=== PATIENT | female | born 1960 | race Caucasian/White ===

== ENCOUNTER 2019-06-15 09:07 | Emergency (ER) | payer SELFPAY ==
[2019-06-15] MEDS ORDERED: ONDANSETRON 4 MG TAB.RAPDIS PO ONE (10:04)
--- NOTE | 2019-06-15 10:05 | ER Document Report ---
ED Medical Screen (RME) - General Chief Complaint: Abdominal Pain Stated Complaint: ABDOMINAL PAIN, CHEST PRESSURE Time Seen by Provider: 06/15/19 09:59 Notes: 58-year-old female with history of [place] with 1 stent presents for chest pressure and abdominal pain. Patient states abdominal pain started yesterday and chest pressure started earlier today. Patient has associated nausea and vomiting and dizziness. Patient denies any dyspnea. Lungs clear to auscultation bilaterally. Abdomen soft nontender. I have greeted and performed a rapid initial assessment of this patient. A comprehensive ED assessment and evaluation of the patient, analysis of test results and completion of the medical decision making process with be conducted by additional ED providers. TRAVEL OUTSIDE OF THE [place] IN LAST 30 DAYS: No - Related Data Allergies/Adverse Reactions: amoxicillin Allergy (Verified 06/15/19 09:43) erythromycin base Allergy (Verified 06/15/19 09:43) Penicillins Allergy (Verified 06/15/19 09:43) Sulfa (Sulfonamide Antibiotics) Allergy (Verified 06/15/19 09:43) Home Medications: lisinopril. metoprolol. asa. pro air. vicodin. prava statin. lorazepam Past Medical History - Social History Chew tobacco use (# tins/day): No Frequency of alcohol use: None Drug Abuse: None Physical Exam - Vital signs Vitals: Temp Pulse Resp BP Pulse Ox 98.7 F 87 16 110/66 95 06/15/19 09:33 06/15/19 09:33 06/15/19 09:33 06/15/19 09:33 06/15/19 09:33 Course - Vital Signs Vital signs: Temp Pulse Resp BP Pulse Ox 98.7 F 87 16 110/66 95 06/15/19 09:33 06/15/19 09:33 06/15/19 09:33 06/15/19 09:33 06/15/19 09:33
[2019-06-15 10:35] LABS: ABSOLUTE EOSINOPHILS # (AUTO) 0.1 10^3/uL (0.0-0.6); ABSOLUTE LYMPHOCYTES (AUTO) 2.4 10^3/uL (0.5-4.7); ABSOLUTE MONOCYTES (AUTO) 0.4 10^3/uL (0.1-1.4); ABSOLUTE NEUT (AUTO) 4.3 10^3/uL (1.7-8.2); BASOPHILS % (AUTO) 0.4 % (0-2); HEMATOCRIT 46.6 % (36.0-47.0); HEMOGLOBIN 16.5 g/dL (12.0-15.5); LYMPHOCYTES % (AUTO) 33.4 % (13-45); MEAN CORPUSCULAR HGB CONC 35.4 g/dL (32.0-36.0); MEAN CORPUSCULAR VOLUME 85 fl (80-97); MONOCYTES % (AUTO) 5.5 % (3-13); PLATELET COUNT 212 10^3/uL (150-450); RED CELL DISTRIBUTION WIDTH 13.3 % (11.5-14.0); SEGMENTED NEUTROPHILS % (AUTO) 59.7 % (42-78); TOTAL CELLS COUNTED % (AUTO) 100 %; WHITE BLOOD COUNT 7.2 10^3/uL (4.0-10.5)
--- NOTE | 2019-06-15 10:37 | RADIOLOGY REPORT (SQ) ---
EXAM DESCRIPTION: CHEST 2 VIEWS COMPLETED DATE/TIME: 06/15/2019 10:17 am REASON FOR STUDY: chest pain COMPARISON: None. EXAM PARAMETERS: NUMBER OF VIEWS: two views TECHNIQUE: Digital Frontal and Lateral radiographic views of the chest acquired. RADIATION DOSE: NA LIMITATIONS: none FINDINGS: LUNGS AND PLEURA: No opacities, masses or pneumothorax. No pleural effusion. MEDIASTINUM AND HILAR STRUCTURES: No masses or contour abnormalities. HEART AND VASCULAR STRUCTURES: Heart normal size. No evidence for failure. BONES: No acute findings. HARDWARE: None in the chest. OTHER: No other significant finding. IMPRESSION: NO ACUTE RADIOGRAPHIC FINDING IN THE CHEST. TECHNICAL DOCUMENTATION: JOB ID: [id number] [employer]- All Rights Reserved Reading location - IP/workstation name: [email or web address]
[2019-06-15 10:41] LABS: ALBUMIN 4.9 g/dL (3.5-5.0); ALKALINE PHOSPHATASE 102 U/L (38-126); ANION GAP 10 (5-19); ASPARTATE AMINO TRANSFERASE 26 U/L (14-36); BILIRUBIN,DIRECT 0.3 mg/dL (0.0-0.4); BILIRUBIN,TOTAL 0.6 mg/dL (0.2-1.3); BLOOD UREA NITROGEN 12 mg/dL (7-20); CALCIUM 10.3 mg/dL (8.4-10.2); CARBON DIOXIDE 30 mmol/L (22-30); CHLORIDE 98 mmol/L (98-107); GLUCOSE 135 mg/dL (75-110); TOTAL PROTEIN 8.2 g/dL (6.3-8.2)
[2019-06-15] MEDS ORDERED: NORMAL SALINE 1000 ML 1,000 ML IV ONE (11:23)
[2019-06-15] MEDS ORDERED: MAG HYDROX/AL HYDROX/SIMETH SUSP 30 ML UDCUP PO ONE (11:35)
[2019-06-15] MEDS ORDERED: LIDOCAINE 2% VISCOUS SOLN 15 ML UDCUP PO ONE (11:35)
--- NOTE | 2019-06-15 11:41 | ER Document Report ---
ED General - General Chief Complaint: Abdominal Pain Stated Complaint: ABDOMINAL PAIN, CHEST PRESSURE Time Seen by Provider: 06/15/19 09:59 Notes: Patient is a 58-year-old white female with a past medical history of hypertension, prior [place] with stenting who sees a manager cardiovascular in the [facility] who presents to the emergency department today with a chief complaint of epigastric abdominal discomfort that began last night. The patient reports that she has been sick for couple weeks. She states she started having some pain in the right ear and went to an urgent care yesterday. She was diagnosed with an infection and placed on azithromycin. She subsequently notes that she is allergic to erythromycin and that it causes bad gastrointestinal side effects such as upset stomach, nausea, vomiting and diarrhea. She reports after taking the azithromycin she experienced to the the abdominal discomfort that is burning in nature, radiating into the chest. States is associated with dry heaving, retching, nausea vomiting. She denies any shortness of breath or lower extremity pain or swelling. Denies any fever or headache or chills or night sweats. TRAVEL OUTSIDE OF THE [place] IN LAST 30 DAYS: No - Related Data Allergies/Adverse Reactions: amoxicillin Allergy (Verified 06/15/19 09:43) erythromycin base Allergy (Verified 06/15/19 09:43) Penicillins Allergy (Verified 06/15/19 09:43) Sulfa (Sulfonamide Antibiotics) Allergy (Verified 06/15/19 09:43) Home Medications: lisinopril. metoprolol. asa. pro air. vicodin. pravas tatin. lorazepam Past Medical History - Social History Smoking Status: Current Every Day Smoker Chew tobacco use (# tins/day): No Frequency of alcohol use: None Drug Abuse: None Family History: None Patient has suicidal ideation: No Patient has homicidal ideation: No - Past Medical History Cardiac Medical History: Reports: Hx Heart Attack - 2011 Past Surgical History: Reports: Hx Cardiac Catheterization - stents, Hx Section - x3, Hx Cholecystectomy Review of Systems - Review of Systems Cardiovascular: Chest pain Gastrointestinal: Abdominal pain, Diarrhea, Nausea, Vomiting -: Yes All other systems reviewed and negative Physical Exam - Vital signs Vitals: Temp Pulse Resp BP Pulse Ox 98.7 F 87 16 110/66 95 06/15/19 09:33 06/15/19 09:33 06/15/19 09:33 06/15/19 09:33 06/15/19 09:33 - General General appearance: Appears well, Alert - HEENT Head: Normocephalic, Atraumatic Eyes: Normal Conjunctiva: Normal Extraocular movements intact: Yes Eyelashes: Normal Ears: Normal External canal: Normal Tympanic membrane: Bulging - Bilaterally. No: Injected Nasal: Normal Mouth/Lips: Normal Mucous membranes: Normal Pharynx: Normal Neck: Normal - Respiratory Respiratory status: No respiratory distress Chest status: Nontender Breath sounds: Normal Chest palpation: Normal - Cardiovascular Rhythm: Regular Heart sounds: Normal auscultation - Neurological Neuro grossly intact: Yes Cognition: Normal Orientation: AAOx4 Indian Coma Scale Eye Opening: Spontaneous Indian Coma Scale Verbal: Oriented Lulu Coma Scale Motor: Obeys Commands Lulu Coma Scale Total: 15 Speech: Normal - Psychological Associated symptoms: Normal affect, Normal mood - Skin Skin Temperature: Warm Skin Moisture: Dry Skin Color: Normal Course - Re-evaluation Re-evalutation: 06/15/19 13:23 EKG at 9:18 AM: Sinus rhythm at 90 bpm. Normal intervals. No evidence of significant acute ischemic changes. No STEMI. Interpreted by ED attending. 06/15/19 13:59 Repeat EKG at 1330: Sinus rhythm at 84 bpm. Normal intervals. No significant change from prior EKG this morning. 06/15/19 14:21 Repeat troponin was normal. Patient is resting comfortably in the room. She has gotten some relief with a GI cocktail. Suspect adverse reaction to the azithromycin given her previous known allergy to erythromycin. She will discontinue this medication. Do not suspect she needs any change in antibiotic as her recent illness is likely viral etiology. We discussed bowel rest, diet precautions. Counseled her regarding the importance of outpatient follow-up. Given a prescription for Zofran in the event the nausea returns. Discussed with her the importance of outpatient follow-up and advised that she return here or any ER immediately with any new, persistent or worsening symptoms. She verbalized understood and agreed. - Vital Signs Vital signs: Temp Pulse Resp BP Pulse Ox 98.7 F 87 16 110/66 95 06/15/19 09:33 06/15/19 09:33 06/15/19 09:33 06/15/19 09:33 06/15/19 09:33 - Laboratory Result Diagrams: 06/15/19 10:10 06/15/19 10:10 Laboratory results interpreted by me: 06/15/19 06/15/19 10:10 10:10 RBC 5.50 H Hgb 16.5 H Glucose 135 H Calcium 10.3 H Lipase 342.8 H Discharge - Discharge Clinical Impression: Gastritis Qualifiers: Gastritis type: unspecified gastritis Chronicity: unspecified Gastritis bleeding: without bleeding Qualified Code(s): K29.70 - Gastritis, unspecified, without bleeding Condition: Stable Disposition: HOME, SELF-CARE Instructions: Nausea or Vomiting, Nonspecific ([facility]) Additional Instructions: Follow-up with your regular doctor in 2 to 3 days for reevaluation. Return here or any ER immediately with any new, persistent or worsening symptoms. Prescriptions: Ondansetron [Zofran Odt 4 mg Tablet] 1 tab PO Q8 PRN #20 tab.rapdis PRN Reason: For Nausea/Vomiting
[2019-06-15 14:42] VITALS: BP 112/59
--- NOTE | 2019-06-15 14:53 | EKG REPORT ---
SEVERITY:- BORDERLINE ECG - SINUS RHYTHM PROBABLE LEFT ATRIAL ABNORMALITY : Confirmed by: Amada Newberry MD 15-Jun-2019 14:52:11
--- NOTE | 2019-06-15 14:53 | EKG REPORT ---
SEVERITY:- NORMAL ECG - SINUS RHYTHM : Confirmed by: Amada Newberry MD 15-Jun-2019 14:52:09
== END 2019-06-15 14:49 | disposition home or self-care (01) ==
LOC: ER 09:07
DX: K29.70 Gastritis, unspecified, without bleeding (principal); R10.9 Unspecified abdominal pain; R07.9 Chest pain, unspecified; F17.200 Nicotine dependence, unspecified, uncomplicated; I25.2 Old myocardial infarction; Z88.0 Allergy status to penicillin; Z88.3 Allergy status to other anti-infective agents; Z88.2 Allergy status to sulfonamides
CPT/HCPCS: 93005; 36415; 83690; 85025; 80053; 84484; 71046; 93010; S0119; J3490; J7030; 96360; 96361; 99284